=== PATIENT | male | born 1955 | race African-American/Black ===

== ENCOUNTER 2021-02-17 04:55 | Emergency (ER) | payer OTHER ==
[2021-02-17 05:13] VITALS: BP 123/63; PULSE 78; TEMP 98.1; BMI 24.1
[2021-02-17] MEDS ORDERED: ACETAMINOPHEN 500 MG TABLET (FP) PO ONE (05:29)
[2021-02-17] MEDS ORDERED: LIDOCAINE 5% TOPICAL PATCH TP ONE (05:29)
[2021-02-17] MEDS ORDERED: LIDOCAINE 5% TOPICAL PATCH ONE (05:32)
[2021-02-17] MEDS ORDERED: ACETAMINOPHEN 500 MG TABLET (FP) ONE (05:34)
[2021-02-17 06:52] LABS: BASO % 0.8 % (0-2.0); EOS % 3.3 % (0-4.5); HEMATOCRIT 39.4 % (35.4-49); HEMOGLOBIN 13.1 GM/dL (11.7-16.9); LYMPH % 34.9 % (8-40); MCH 31.6 pg (25.7-33.7); MCHC 33.3 g/dl (32.0-35.9); MEAN CELL VOLUME 94.9 fl (80-96); MEAN PLT VOLUME 8.2 fl (7.5-11.1); MONO % 12.8 % (3.8-10.2); NEUT % 48.2 % (42.8-82.8); PLATELET COUNT 217 10^3/uL (134-434); RBC 4.15 M/mm3 (4.00-5.60); RDW 15.3 % (11.9-15.9)
[2021-02-17 07:30] LABS: CHLORIDE 109 mmol/L (98-107); SODIUM 144 mmol/L (136-145)
[2021-02-17 07:32] LABS: CALCIUM 10.1 mg/dL (8.5-10.1)
[2021-02-17 07:33] LABS: ANION GAP 8 MMOL/L (8-16); BLOOD UREA NITROGEN 12.8 mg/dL (7-18); CO2 27 mmol/L (21-32); GLUCOSE,RANDOM 101 mg/dL (74-106); MAGNESIUM 2.4 mg/dL (1.8-2.4)
[2021-02-17 07:36] LABS: CREATININE 0.9 mg/dL (0.55-1.3); SGOT/AST 29 U/L (15-37); SGPT/ALT 30 U/L (13-61)
[2021-02-17 07:38] LABS: BILIRUBIN,TOTAL 0.5 mg/dL (0.2-1)
[2021-02-17 07:39] LABS: ALK PHOS 123 U/L (45-117)
[2021-02-17] MEDS ORDERED: morphine CARPU-JECT 4 MG/1 ML DISP.SYRIN IVPUSH ONE (11:11)
[2021-02-17] MEDS ORDERED: LIDOCAINE PATCH REMOVAL MC ONE (18:00)
== END 2021-02-17 13:50 | disposition home or self-care (01) ==
LOC: JER 04:55
PROC: 3E033NZ Introduction of Analgesics, Hypnotics, Sedatives into Peripheral Vein, Percutaneous Approach (ICD-10-PCS; principal; 2021-02-17)
DX: M54.05 Panniculitis affecting regions of neck and back, thoracolumbar region (principal)
CPT/HCPCS: 36415; 71046-TC-FY; 71275-TC; 72128-TC; 72131-TC; 74174-TC; 80053; 82550; 82553; 83735; 84484; 85025; 93005; 93010; 99285-25; Q9967